=== PATIENT | female | born 1995 | race African-American/Black ===

== ENCOUNTER 2020-10-02 16:06 | Emergency (ER) | payer MEDICAID | END 2020-10-02 18:04 | disposition left against medical advice (07) | LOC: ER 16:06 | DX: Z53.21 Procedure and treatment not carried out due to patient leaving prior to being seen by health care provider (principal) ==

== ENCOUNTER 2021-07-31 15:42 | Emergency (ER) | payer MEDICAID ==
[~2021-07-31] VITALS: Ht 157.5 cm; Wt 68.0 kg
[2021-07-31 15:51] VITALS: BP 137/82
[2021-07-31 16:44] LABS: CLARITY URINE CLEAR (CLEAR); COLOR URINE YELLOW (YELLOW); KETONES URINE TRACE (NEGATIVE); LEUKOCYTE ESTERASE URINE NEGATIVE (NEGATIVE); NITRITE URINE NEGATIVE (NEGATIVE); OCCULT BLOOD URINE NEGATIVE (NEGATIVE); PH URINE 7.5 (4.5-8.0); PROTEIN URINE NEGATIVE (NEGATIVE); SPECIFIC GRAVITY URINE 1.027 (1.005-1.030)
[2021-07-31] MEDS ORDERED: MAGNESIUM CITRATE 300ML SOLUTION PO ONE (17:15)
[2021-07-31] MEDS ORDERED: MAGNESIUM HYDROXIDE 400MG/5ML 30ML UDC PO ONE (17:15)
[2021-07-31] MEDS ORDERED: LACTULOSE 20G/30ML UDC PO ONE (17:15)
[2021-07-31] MEDS ORDERED: DOCU-138 MT (18:19)
[2021-07-31] MEDS ORDERED: LACTULOSE 20G/30ML UDC PO NR (18:30)
== END 2021-07-31 18:36 | disposition home or self-care (01) ==
LOC: ER 15:42
DX: K59.00 Constipation, unspecified (principal); R03.0 Elevated blood-pressure reading, without diagnosis of hypertension
CPT/HCPCS: 74018; 81003; 81025; 99284

== ENCOUNTER 2022-01-01 19:12 | Emergency (ER) | payer MEDICAID, OTHER ==
[~2022-01-01] VITALS: Ht 157.5 cm; Wt 76.0 kg
[~2022-01-01 19:12] MED LIST: DOCU-138 MT; LEVO1.5T37 MT
[2022-01-01 22:45] LABS: CLARITY URINE CLEAR (CLEAR); COLOR URINE YELLOW (YELLOW); KETONES URINE 2+ (NEGATIVE); LEUKOCYTE ESTERASE URINE NEGATIVE (NEGATIVE); NITRITE URINE NEGATIVE (NEGATIVE); OCCULT BLOOD URINE NEGATIVE (NEGATIVE); PROTEIN URINE NEGATIVE (NEGATIVE); UROBILINOGEN URINE 0.2 E.U./dL (0.2-1.0)
[2022-01-01 23:34] LABS: CHLORIDE 101 mEq/L (98-107)
[2022-01-01 23:45] LABS: B-HCG QUANTITATIVE < 1 mIU/mL (<3)
[2022-01-01 23:47] LABS: BASOPHILS % 1.1 % (0.0-2.0); EOSINOPHILS % 0.6 % (0.0-5.0); HEMATOCRIT. 41.6 % (36.0-48.0); HEMOGLOBIN. 14.1 g/dL (12.0-16.0); LYMPHOCYTES % 30.1 % (20.0-50.0); MEAN CORPUSCULAR HEMOGLOBIN 31.5 pg (28.0-32.0); MEAN CORPUSCULAR VOLUME 93.2 fL (81.0-99.0); MEAN PLATELET VOLUME 8.4 fl (7.4-10.4); MONOCYTES % 7.8 % (2.0-8.0); NEUTROPHILS % 60.4 % (40.0-76.0); PLATELET 275 x1000/uL (130-400); RED BLOOD CELL COUNT 4.46 mill/uL (4.2-5.4); RED CELL DISTRIBUTION WIDTH 13.2 % (11.6-14.6)
[2022-01-02] MEDS ORDERED: KETOROLAC 30MG/ML VIAL IV ONE (00:30)
[2022-01-02] MEDS ORDERED: SODIUM CHLORIDE 0.9% 1,000 ML IV ONE (00:30)
[2022-01-02] MEDS ORDERED: METOCLOPRAMIDE HCL 10MG/2ML VIAL IV ONE (00:30)
[2022-01-02] MEDS ORDERED: METO5TAB86 MT ×3 (00:56→10:49)
[2022-01-02 01:00] VITALS: BP 108/61
== END 2022-01-02 01:16 | disposition home or self-care (01) ==
LOC: ER 19:12
DX: O20.9 Hemorrhage in early pregnancy, unspecified (principal); O26.891 Other specified pregnancy related conditions, first trimester; R10.30 Lower abdominal pain, unspecified; Z3A.01 Less than 8 weeks gestation of pregnancy
CPT/HCPCS: 36415; 76801; 76817; 80053; 81003; 81025; 84702; 85025; 86850; 86900; 86901; 96374; 96375; 99284; J1885; J2765; J7030